=== PATIENT | male | born 1990 | race Hispanic/Latino ===

== ENCOUNTER 2020-01-02 13:04 | Emergency (ER) | payer SELFPAY ==
[2020-01-02] MEDS ORDERED: Sulfameth/Trimethoprim DS 800-160mg TAB ONE (14:14)
[2020-01-02] MEDS ORDERED: cefTRIAXone\\ROCEPHIN 1 GM VIAL ONE (14:14)
[2020-01-02] MEDS ORDERED: Lidocaine 1% 20 ML MDV ONE (14:14)
== END 2020-01-02 13:35 | disposition home or self-care (01) ==
LOC: MADERS 13:04
DX: L03.114 Cellulitis of left upper limb (principal); M70.22 Olecranon bursitis, left elbow
CPT/HCPCS: 96372; 99283; J0696; J2001

== ENCOUNTER 2020-05-05 10:35 | Emergency (ER) | payer SELFPAY ==
[2020-05-05] MEDS ORDERED: Cephalexin 500 MG CAP ONE (11:04)
[2020-05-05] MEDS ORDERED: Fluconazole 100 MG TAB ONE (11:04)
== END 2020-05-05 11:08 | disposition home or self-care (01) ==
LOC: MADERS 10:35
DX: L03.313 Cellulitis of chest wall (principal)
CPT/HCPCS: 99283

== ENCOUNTER 2020-10-25 12:33 | Emergency (ER) | payer SELFPAY ==
[2020-10-25 12:58] LABS: #Basophils 0.1 thou/uL (0.0-0.2); #Eosinphils 0.1 thou/uL (0.0-0.7); #Lymphocytes 1.5 thou/uL (1.20-3.40); #Monocytes 0.7 thou/uL (0.11-0.59); #Neutrophils 8.6 thou/uL (1.40-6.50); %Basophils 0.7 % (0.0-1.0); %Eosinophils 0.9 % (0.0-10.0); %Lymphocytes 13.8 % (21.0-51.0); %Monocytes 6.6 % (0.0-10.0); %Neutrophils 77.9 % (42.0-75.0); Hemoglobin 14.5 g/dL (14.0-18.0); Mean Corpuscular HGB CONC 32.6 g/dL (32.0-36.0); Mean Corpuscular Hemoglobin 30.4 pg (27.0-31.0); Mean Corpuscular Volume 93.3 fL (78.0-98.0); Mean Platelet Volume 9.8 fL (7.4-10.4); Platelet Count 235 thou/uL (130-400); RBC Distribution Width 12.1 % (11.5-14.5); Red Blood Cell (RBC) Count 4.76 mill/uL (4.70-6.10); White Blood Cell (WBC) Count 11.1 thou/uL (4.8-10.8)
[2020-10-25 13:16] LABS: ALT (SGPT) 21 U/L (8-55); AST (SGOT) 17 U/L (5-34); Albumin 4.7 g/dL (3.5-5.0); Alkaline Phosphatase 120 U/L (40-110); Anion Gap 16 mmol/L (10-20); BUN (Urea Nitrogen) 17 mg/dL (8.9-20.6); Bilirubin, Total 0.6 mg/dL (0.2-1.2); Calc. Creatinine Clearance 0 mL/min (70-130); Calcium 9.5 mg/dL (7.8-10.44); Carbon Dioxide 22 mmol/L (22-29); Chloride 106 mmol/L (98-107); Globulin 3.3 g/dL (2.4-3.5); Glucose 85 mg/dL (70-105); Potassium 3.9 mmol/L (3.5-5.1); Sodium 140 mmol/L (136-145)
[2020-10-25 13:17] LABS: Acetaminophen Less than 6.0 mcg/mL (10.0-30.0); Alcohol Less than 10 mg/dL (Less than 10); Magnesium 1.8 mg/dL (1.6-2.6); Salicylate Less than 8.0 mg/dL (15.0-30.0)
[2020-10-25 13:53] LABS: Bilirubin Small (Negative); Blood, Urine Negative (Negative); Glucose, Urine (Dipstick) Negative (Negative); Ketone, Urine Negative (Negative); Leukocyte Negative (Negative); Nitrite Negative (Negative); Protein, Urine (Dipstick) 100 mg/dL (Neg-Trace); Specific Gravity, Urine 1.035 (1.002-1.036); Urobilinogen 0.2 mg/dL (Less than 2)
[2020-10-25 13:54] LABS: Bacteria/HPF 1+ HPF (None Seen); Clarity Hazy (Clear); RBC/HPF 0-3 HPF (0-3); WBC/HPF 0-3 HPF (0-3)
[2020-10-25 13:58] LABS: Amphetamine Not Detected (NotDetected); Barbiturates Screen Not Detected (NotDetected); Benzodiazepine Screen Not Detected (NotDetected); Cocaine Metabolite Screen Not Detected (NotDetected); Medtox Control Line Valid? VALID (VALID); Methadone Not Detected (NotDetected); Methamphetamine Not Detected (NotDetected); Opiate Screen Not Detected (NotDetected); Oxycodone Screen Not Detected (NotDetected); Phencyclidine (PCP) Not Detected (NotDetected); THC/Cannabinoid Screen Detected (NotDetected); Tricyclic Screen Not Detected (NotDetected)
== END 2020-10-25 14:42 | disposition home or self-care (01) ==
LOC: MADERS 12:33
DX: R55 Syncope and collapse (principal); R11.15 Cyclical vomiting syndrome unrelated to migraine; R42 Dizziness and giddiness; R07.9 Chest pain, unspecified; R06.02 Shortness of breath; I10 Essential (primary) hypertension
CPT/HCPCS: 80053; 80306; 80307; 81003; 81015; 83690; 83735; 84443; 84484; 85025; 85379; 93005; 94760

== ENCOUNTER 2021-01-13 08:47 | Outpatient (CLI) | payer OTHER | END 2021-01-13 08:48 | disposition home or self-care (01) | LOC: MADRAD 08:47 | PROVIDERS: ATTEND Orthopaedic Surgery | DX: S52.572A Other intraarticular fracture of lower end of left radius, initial encounter for closed fracture (principal); S52.612A Displaced fracture of left ulna styloid process, initial encounter for closed fracture ==

== ENCOUNTER 2021-07-14 15:58 | Emergency (ER) | payer SELFPAY ==
[2021-07-14] MEDS ORDERED: Lidocaine 1% (PF) 30 ML VIAL ONE (16:45)
[2021-07-14] MEDS ORDERED: Bacitracin 1 PK ONE (17:00)
== END 2021-07-14 17:14 | disposition home or self-care (01) ==
LOC: MADERS 15:58
DX: S61.213A Laceration without foreign body of left middle finger without damage to nail, initial encounter (principal); S60.414A Abrasion of right ring finger, initial encounter; X58.XXXA Exposure to other specified factors, initial encounter
CPT/HCPCS: 12001; J2001